=== PATIENT | female | born 1990 | race Caucasian/White ===

== ENCOUNTER 2018-05-10 18:06 | Emergency (ER) | payer MEDICAID ==
[2018-05-10 18:54] VITALS: BP 117/79
[2018-05-10] MEDS ORDERED: Sodium Chloride 0.9% 10 ML Syringe FLUSH PRN (19:04)
[2018-05-10] MEDS ORDERED: Sodium Chloride 0.9% 1,000 ML IV STA (19:04)
--- NOTE | 2018-05-10 19:12 | EDM.PDOC ---
ED HPI GENERAL MEDICAL PROBLEM - General Chief Complaint: Abdominal Pain Stated Complaint: ABDOMINAL PAIN Time Seen by Provider: 05/10/18 18:55 Source of Information: Reports: Patient History Limitations: Reports: No Limitations - History of Present Illness INITIAL COMMENTS - FREE TEXT/NARRATIVE: The patient presents with right lower abdominal pain. This started at 2pm today. The pain has increased through the day. The pain did start in the mid abdomen and traveled to the RLQ. She has nausea but no vomiting. She has chills but no fever. She has no dysuria or diarrhea. Straining to urinate and movement makes the pain worse. She still has her appendix and gallbladder. She has no chest pain or shortness of breath. Onset: Gradual Duration: Hour(s): (2pm today) Location: Reports: Abdomen Quality: Reports: Sharp Severity: Moderate Improves with: Reports: Immobilization Worsens with: Reports: Movement Associated Symptoms: Reports: Nausea/Vomiting. Denies: Chest Pain, Fever/Chills , Headaches, Shortness of Breath Right Lower Abdominal Pain Score (Numeric/FACES): 7 - Related Data Allergies Allergy/AdvReac Type Severity Reaction Status Date / Time wool Allergy Hives Uncoded 05/10/18 18:50 Home Meds: Home Meds . [No Known Home Meds] 05/10/18 [History] Past Medical History STEM ROLLER History: Reports: Endometriosis Social & Family History - Tobacco Use Smoking Status *Q: Never Smoker - Recreational Drug Use Recreational Drug Use: No ED ROS GENERAL - Review of Systems Review Of Systems: See Below Constitutional: Reports: Chills. Denies: Fever HEENT: Reports: No Symptoms Respiratory: Reports: No Symptoms Cardiovascular: Reports: No Symptoms Endocrine: Reports: No Symptoms GI/Abdominal: Reports: Abdominal Pain, Nausea. Denies: Diarrhea, Vomiting : Reports: No Symptoms Musculoskeletal: Reports: No Symptoms ED EXAM, GI/ABD - Physical Exam Exam: See Below Exam Limited By: No Limitations General Appearance: Alert, No Apparent Distress Ears: Normal External Exam Nose: Normal Inspection Head: Atraumatic, Normocephalic Neck: Normal Inspection Respiratory/Chest: No Respiratory Distress, Lungs Clear, Normal Breath Sounds Cardiovascular: Regular Rate, Rhythm, No Edema, No Murmur GI/Abdominal Exam: Soft, No Organomegaly, No Mass, Tender (Moderate tenderness to palpation to the RLQ) Extremities: Normal Inspection Course - Vital Signs Last Recorded V/S: Last Vital Signs Temp 98.5 F 05/10/18 18:50 Pulse 69 05/10/18 18:50 Resp 16 05/10/18 18:50 BP 117/79 05/10/18 18:50 Pulse Ox 97 05/10/18 18:50 - Orders/Labs/Meds Orders: Active Orders 24 hr Category Date Time Status Peripheral IV Care [RC] . DIRECTED Care 05/10/18 19:04 Active Abdomen Pelvis w Cont [CT] Stat Exams 05/10/18 19:04 Taken Transvaginal Non OB [US] Stat Exams 05/10/18 22:06 Taken Sodium Chloride 0.9% [Saline Flush] Med 05/10/18 19:04 Active 10 ml FLUSH ASDIRECTED PRN Peripheral IV Insertion Adult [OM.PC] Stat Oth 05/10/18 19:04 Ordered Medication Orders Sodium Chloride (Saline Flush) 10 ml FLUSH ASDIRECTED PRN PRN Reason: Keep Vein Open Last Admin: 05/10/18 19:20 Dose: 10 ml Labs: Laboratory Tests 05/10/18 05/10/18 05/10/18 Range/Units 19:20 19:20 19:25 WBC 5.34 (3.98-10.04) K/mm3 RBC 4.66 (3.98-5.22) M/mm3 Hgb 14.2 (11.2-15.7) gm/L Hct 42.2 (34.1-44.9) % MCV 90.6 (79.4-94.8) fl MCH 30.5 (25.6-32.2) pg MCHC 33.6 (32.2-35.5) g/dl RDW Std Deviation 39.0 (36.4-46.3) fL Plt Count 205 (182-369) K/mm3 MPV 11.0 (9.4-12.3) fl Neut % (Auto) 58.0 (34.0-71.1) % Lymph % (Auto) 29.4 (19.3-51.7) % Brooks % (Auto) 7.3 (4.7-12.5) % Eos % (Auto) 4.9 (0.7-5.8) Baso % (Auto) 0.4 (0.1-1.2) % Neut # (Auto) 3.10 (1.56-6.13) K/mm3 Lymph # (Auto) 1.57 (1.18-3.74) K/mm3 Brooks # (Auto) 0.39 H (0.24-0.36) K/mm3 Eos # (Auto) 0.26 (0.04-0.36) K/mm3 Baso # (Auto) 0.02 (0.01-0.08) K/mm3 Sodium (136-145) mEq/L Potassium (3.5-5.1) mEq/L Chloride (98-107) mEq/L Carbon Dioxide (21-32) mEq/L Anion Gap (5-15) BUN (7-18) mg/dL Creatinine (0.55-1.02) mg/dL Est Cr Clr Drug Dosing mL/min Estimated GFR (MDRD) (>60) mL/min BUN/Creatinine Ratio (14-18) Glucose (74-106) mg/dL Calcium (8.5-10.1) mg/dL Total Bilirubin (0.2-1.0) mg/dL AST (15-37) U/L ALT (14-59) U/L Alkaline Phosphatase (46-116) U/L Total Protein (6.4-8.2) g/dl Albumin (3.4-5.0) g/dl Globulin gm/dL Albumin/Globulin Ratio (1-2) Lipase (73-393) U/L HCG, Qual Negative (NEGATIVE) Urine Color Light yellow (Yellow) Urine Appearance Clear (Clear) Urine pH 6.5 (5.0-8.0) Ur Specific [place] 1.025 (1.005-1.030) Urine Protein Negative (Negative) Urine Glucose (UA) Negative (Negative) Urine Ketones Negative (Negative) Urine Occult Blood Negative (Negative) Urine Nitrite Negative (Negative) Urine Bilirubin Negative (Negative) Urine Urobilinogen 0.2 (0.2-1.0) Ur Leukocyte Esterase Negative (Negative) Urine RBC Not seen (0-5) /hpf Urine WBC 0-5 (0-5) /hpf Ur Epithelial Cells 10-20 H (0-5) /hpf Urine Bacteria Not seen (FEW) /hpf Urine Mucus Not seen (FEW) /hpf 09/27/18 Range/Units 19:25 WBC (3.98-10.04) K/mm3 RBC (3.98-5.22) M/mm3 Hgb (11.2-15.7) gm/L Hct (34.1-44.9) % MCV (79.4-94.8) fl MCH (25.6-32.2) pg MCHC (32.2-35.5) g/dl RDW Std Deviation (36.4-46.3) fL Plt Count (182-369) K/mm3 MPV (9.4-12.3) fl Neut % (Auto) (34.0-71.1) % Lymph % (Auto) (19.3-51.7) % Brooks % (Auto) (4.7-12.5) % Eos % (Auto) (0.7-5.8) Baso % (Auto) (0.1-1.2) % Neut # (Auto) (1.56-6.13) K/mm3 Lymph # (Auto) (1.18-3.74) K/mm3 Brooks # (Auto) (0.24-0.36) K/mm3 Eos # (Auto) (0.04-0.36) K/mm3 Baso # (Auto) (0.01-0.08) K/mm3 Sodium 139 (136-145) mEq/L Potassium 3.8 (3.5-5.1) mEq/L Chloride 104 (98-107) mEq/L Carbon Dioxide 26 (21-32) mEq/L Anion Gap 12.8 (5-15) BUN 20 H (7-18) mg/dL Creatinine 0.7 (0.55-1.02) mg/dL Est Cr Clr Drug Dosing 95.95 mL/min Estimated GFR (MDRD) > 60 (>60) mL/min BUN/Creatinine Ratio 28.6 H (14-18) Glucose 81 (74-106) mg/dL Calcium 8.8 (8.5-10.1) mg/dL Total Bilirubin 0.3 (0.2-1.0) mg/dL AST 16 (15-37) U/L ALT 22 (14-59) U/L Alkaline Phosphatase 105 (46-116) U/L Total Protein 8.0 (6.4-8.2) g/dl Albumin 4.4 (3.4-5.0) g/dl Globulin 3.6 gm/dL Albumin/Globulin Ratio 1.2 (1-2) Lipase 146 (73-393) U/L HCG, Qual (NEGATIVE) Urine Color (Yellow) Urine Appearance (Clear) Urine pH (5.0-8.0) Ur Specific [place] (1.005-1.030) Urine Protein (Negative) Urine Glucose (UA) (Negative) Urine Ketones (Negative) Urine Occult Blood (Negative) Urine Nitrite (Negative) Urine Bilirubin (Negative) Urine Urobilinogen (0.2-1.0) Ur Leukocyte Esterase (Negative) Urine RBC (0-5) /hpf Urine WBC (0-5) /hpf Ur Epithelial Cells (0-5) /hpf Urine Bacteria (FEW) /hpf Urine Mucus (FEW) /hpf Meds: Medications Generic Name Dose Route Start Last Admin Trade Name Freq PRN Reason Stop Dose Admin Sodium Chloride 10 ml 05/10/18 19:04 05/10/18 19:20 Saline Flush FLUSH 10 ml ASDIRECTED PRN Administration Keep Vein Open Discontinued Medications Generic Name Dose Route Start Last Admin Trade Name Freq PRN Reason Stop Dose Admin Diatrizoate Meglum/Diatrizoate Sod 120 ml 05/10/18 21:07 05/10/18 21:08 Gastrografin 37% PO 05/10/18 21:08 120 ml ONETIME ONE Administration Sodium Chloride 1,000 mls @ 1,000 mls/hr 05/10/18 19:04 05/10/18 19:20 Normal Saline IV 05/10/18 20:03 1,000 mls/hr .BOLUS STA Administration Iopamidol 100 ml 05/10/18 21:07 05/10/18 21:08 Isovue-300 (61%) IVPUSH 05/10/18 21:08 100 ml ONETIME ONE Administration - Re-Assessments/Exams Free Text/Narrative Re-Assessment/Exam: 05/10/18 19:11 I ordered an IV NS 1L bolus, labs, UA and a CT of her abdomen and pelvis. 05/10/18 21:56 Her CBC looks good with a normal WBC. She has a normal CMP. Her HCG is negative. Her UA shows no UTI. Her CT shows nothing acute. Her pain started in her mid abdomen and localized to the right lower abdomen. The pain is not deep in the pelvis. She will not take anything for pain. I will have her follow up with Dr Schwarz or one of her partners. 05/10/18 23:18 I decided to get a transvagianl US to look for an ovarian torsion. I did not suspect that initially because her pain started in her mid abdomen. I do not have the report back yet but she has to go. I will discharge her and call her the results. 05/10/18 23:32 The US was normal. I called to let the patient know. She will follow up with her doctor. Departure - Departure Time of Disposition: 22:00 Disposition: Home, Self-Care 01 Condition: Good Clinical Impression: Abdominal pain Qualifiers: Abdominal location: periumbilical Qualified Code(s): R10.33 - Periumbilical pain - Discharge Information *PRESCRIPTION DRUG MONITORING PROGRAM REVIEWED*: No *COPY OF PRESCRIPTION DRUG MONITORING REPORT IN PATIENT MADDIE: No Instructions: Abdominal Pain, Adult, [id number] Referrals: PCP,None [Primary Care Provider] - Catrina Schwarz MD [Physician] - 1 Week Forms: ED Department Discharge Additional Instructions: Go home and rest. Try a heating pad on your abdomen. Take tylenol or motrin for pain. Please return if you are worse. - My Orders Last 24 Hours: My Active Orders 05/10/18 19:04 Peripheral IV Care [RC] . DIRECTED Abdomen Pelvis w Cont [CT] Stat Sodium Chloride 0.9% [Saline Flush] 10 ml FLUSH ASDIRECTED PRN Peripheral IV Insertion Adult [OM.PC] Stat 05/10/18 22:06 Transvaginal Non OB [US] Stat - Assessment/Plan Last 24 Hours: My Active Orders 05/10/18 19:04 Peripheral IV Care [RC] . DIRECTED Abdomen Pelvis w Cont [CT] Stat Sodium Chloride 0.9% [Saline Flush] 10 ml FLUSH ASDIRECTED PRN Peripheral IV Insertion Adult [OM.PC] Stat 05/10/18 22:06 Transvaginal Non OB [US] Stat
[2018-05-10] MEDS ORDERED: Iopamidol 612 MG/ML 100 ML Bottle IVPUSH ONE (21:07)
[2018-05-10] MEDS ORDERED: Diatrizoate Meglumine/Diatrizoate Sodium 37% 120 ML Bottle PO ONE (21:07)
--- NOTE | 2018-05-11 08:35 | CT ---
CT abdomen and pelvis Technique: Multiple axial sections were obtained above the dome of the diaphragm inferiorly to the pubic symphysis. Intravenous and oral contrast was utilized. Comparison: Prior CT abdomen and pelvis exam of 07/27/15. Findings: Small portion of the visualized lung bases are clear. Liver shows no focal parenchymal abnormality. Spleen appears within normal limits. Two small nonobstructing calculi are seen within the left kidney. Right kidney shows no abnormal calcifications. No hydronephrosis or mass is seen within the kidneys. No adrenal nodule is seen. Pancreas appears within normal limits. Gallbladder contains no calcified gallstones. Aorta shows no aneurysm. No retroperitoneal adenopathy or mesenteric abnormalities are seen. Appendix is seen and is normal. No pelvic mass or adenopathy is seen. No inflammatory change is identified. Bone window settings were reviewed which appear within normal limits for the patient's age. Impression: 1. Two small nonobstructing calculi within the left kidney. 2. Nothing acute is seen on CT study of the abdomen and pelvis. Diagnostic code #2 I agree with preliminary report issued by [employer] ([facility] preliminary report dictated on 05/10/18, 10:41 PM Central Time)
--- NOTE | 2018-05-11 08:35 | US ---
Pelvic ultrasound: Multiple real-time images were obtained transvaginally. Comparison: Prior pelvic ultrasound exam of 03/24/11. Uterus is retroverted. No myometrial abnormality is seen. Endometrial thickness is 1.4 cm. Follicles seen within both ovaries. Paraovarian or exophytic cyst off the right ovary measuring 2.0 cm which is felt to be incidental given its size. No larger cyst or solid abnormality is seen within the ovaries. No free fluid is seen. Measurements: Uterus: Length 7.5 cm, AP height of 4.8 cm, transverse width 6.3 cm Right ovary: 4.2 x 2.5 x 2.7 cm Left ovary: 2.8 x 1.5 x 1.7 cm Impression: 1. Nothing acute is seen on pelvic ultrasound exam. Diagnostic code #1 Agree with preliminary report issued by [facility] ([facility] preliminary report dictated on 05/11/18, 12:26 AM Central Time)
== END 2018-05-10 23:21 | disposition home or self-care (01) ==
LOC: JD.ED 18:06
DX: R10.33 Periumbilical pain (principal)
CPT/HCPCS: 36415; 74177; 76830; 80053; 81001; 83690; 84703; 85025; 96360; 96361; 99284; J7040; J7050; Q9963; Q9967

== ENCOUNTER 2020-04-13 13:33 | Emergency (ER) | payer MEDICAID, OTHER ==
--- NOTE | 2020-04-13 15:51 | EDM.PDOC ---
ED HPI GENERAL MEDICAL PROBLEM - General Chief Complaint: Chest Pain Stated Complaint: SKIN COMPLAINT (COVID +) Time Seen by Provider: 04/13/20 13:55 Source of Information: Reports: Patient History Limitations: Reports: No Limitations - History of Present Illness INITIAL COMMENTS - FREE TEXT/NARRATIVE: The patient is COVID 19 positive and she presents with chest pain and a rash on her face. She started having some symptoms 8 days ago. She got tested last week and found out she was positive on Monday. She has been isolated. She has body aches but those are better except pain in her right lower anterior leg. She has no swelling there. She has mid chest pain that has been there since this started and maybe a little worse. She developed a rash an hour ago on her face. She thinks there is some swelling in her throat. She was recently put on flagyl for bacterial vaginosis She has no rash anywhere else. She has no medical problems. She has some shortness of breath with exertion at times. Her cough is mostly gone. She does not have a sense of smell or taste. Onset: Gradual Duration: Day(s): Location: Reports: Chest, Lower Extremity, Right Quality: Reports: Sharp Severity: Moderate Improves with: Reports: None Worsens with: Reports: None Associated Symptoms: Reports: Chest Pain Chest Pain Score (Numeric/FACES): 7 - Related Data Allergies Allergy/AdvReac Type Severity Reaction Status Date / Time wool Allergy Hives Verified 04/13/20 14:27 Home Meds: Home Meds Clindamycin HCl 300 mg PO BID #14 capsule 04/13/20 [Rx] traMADol [Ultram] 50 - 100 mg PO Q6H PRN #20 tab 04/13/20 [Rx] Past Medical History HEENT History: Reports: Impaired Vision Other HEENT History: wears eyeglasses. Respiratory History: Reports: SOB, Other (See Below) Other Respiratory History: COVID +) currently. Genitourinary History: Reports: UTI, Recurrent Other Genitourinary History: bacterial vaginosis. DIRECT[employer] LEARNING [employer] DEVELOPMENT History: Reports: Endometriosis, Endocrine/Metabolic History: Reports: Hyperthyroidism - Infectious Disease History Infectious Disease History: Reports: Chicken Pox, Influenza, Novel Coronavirus Social & Family History - Tobacco Use Smoking Status *Q: Never Smoker Second Hand Smoke Exposure: No - Caffeine Use Caffeine Use: Reports: Soda - Recreational Drug Use Recreational Drug Use: No ED ROS GENERAL - Review of Systems Review Of Systems: See Below Constitutional: Reports: No Symptoms HEENT: Reports: No Symptoms Respiratory: Reports: Shortness of Breath Cardiovascular: Reports: Chest Pain Endocrine: Reports: No Symptoms GI/Abdominal: Reports: No Symptoms : Reports: No Symptoms Musculoskeletal: Reports: No Symptoms Skin: Reports: Rash (on face) ED EXAM, GENERAL - Physical Exam Exam: See Below Exam Limited By: No Limitations General Appearance: Alert, No Apparent Distress Ears: Normal External Exam Nose: Normal Inspection Throat/Mouth: Normal Inspection Head: Atraumatic, Normocephalic Neck: Normal Inspection Respiratory/Chest: No Respiratory Distress, Lungs Clear, Normal Breath Sounds Cardiovascular: Regular Rate, Rhythm, No Edema, No Murmur GI/Abdominal: Soft, Non-Tender, No Organomegaly, No Mass Back Exam: Normal Inspection Extremities: Other (Mild pain upon palpation to the right lower anterior leg without edema) Neurological: Alert, Oriented, No Motor/Sensory Deficits Skin Exam: Rash (papular rash to the chin) Course - Vital Signs Last Recorded V/S: Last Vital Signs Temp 97.1 F 04/13/20 13:55 Pulse 64 04/13/20 13:55 Resp 16 04/13/20 13:55 BP 89/57 L 04/13/20 13:55 Pulse Ox 100 04/13/20 13:55 - Orders/Labs/Meds Orders: Active Orders 24 hr Category Date Time Status EKG 12 Lead [EKG Documentation Completion] [RC] STAT Care 04/13/20 14:22 Active Labs: Laboratory Tests 04/13/20 04/13/20 04/13/20 Range/Units 15:35 15:35 15:35 WBC 3.53 L (3.98-10.04) K/mm3 RBC 4.11 (3.98-5.22) M/mm3 Hgb 12.9 (11.2-15.7) gm/dl Hct 38.4 (34.1-44.9) % MCV 93.4 (79.4-94.8) fl MCH 31.4 (25.6-32.2) pg MCHC 33.6 (32.2-35.5) g/dl RDW Std Deviation 39.8 (36.4-46.3) fL Plt Count 167 L (182-369) K/mm3 MPV 10.7 (9.4-12.3) fl Neut % (Auto) 67.9 (34.0-71.1) % Lymph % (Auto) 24.1 (19.3-51.7) % [place] % (Auto) 5.4 (4.7-12.5) % Eos % (Auto) 2.3 (0.7-5.8) Baso % (Auto) 0.3 (0.1-1.2) % Neut # (Auto) 2.40 (1.56-6.13) K/mm3 Lymph # (Auto) 0.85 L (1.18-3.74) K/mm3 [place] # (Auto) 0.19 L (0.24-0.36) K/mm3 Eos # (Auto) 0.08 (0.04-0.36) K/mm3 Baso # (Auto) 0.01 (0.01-0.08) K/mm3 D-Dimer, Quantitative < 0.19 L (0.19-0.50) mg/L Sodium 141 (136-145) mEq/L Potassium 3.9 (3.5-5.1) mEq/L Chloride 107 (98-107) mEq/L Carbon Dioxide 30 (21-32) mEq/L Anion Gap 7.9 (5-15) BUN 10 (7-18) mg/dL Creatinine 0.7 (0.55-1.02) mg/dL Est Cr Clr Drug Dosing 91.72 mL/min Estimated GFR (MDRD) > 60 (>60) mL/min BUN/Creatinine Ratio 14.3 (14-18) Glucose 83 (74-106) mg/dL Calcium 8.9 (8.5-10.1) mg/dL Ferritin (8-252) ng/ml Total Bilirubin 0.3 (0.2-1.0) mg/dL AST 14 L (15-37) U/L ALT 21 (14-59) U/L Alkaline Phosphatase 62 (46-116) U/L Lactate Dehydrogenase 135 (81-234) U/L C-Reactive Protein 0.2 (<1.0) mg/dL Total Protein 7.0 (6.4-8.2) g/dl Albumin 3.7 (3.4-5.0) g/dl Globulin 3.3 gm/dL Albumin/Globulin Ratio 1.1 (1-2) 04/13/20 Range/Units 15:35 WBC (3.98-10.04) K/mm3 RBC (3.98-5.22) M/mm3 Hgb (11.2-15.7) gm/dl Hct (34.1-44.9) % MCV (79.4-94.8) fl MCH (25.6-32.2) pg MCHC (32.2-35.5) g/dl RDW Std Deviation (36.4-46.3) fL Plt Count (182-369) K/mm3 MPV (9.4-12.3) fl Neut % (Auto) (34.0-71.1) % Lymph % (Auto) (19.3-51.7) % [place] % (Auto) (4.7-12.5) % Eos % (Auto) (0.7-5.8) Baso % (Auto) (0.1-1.2) % Neut # (Auto) (1.56-6.13) K/mm3 Lymph # (Auto) (1.18-3.74) K/mm3 [place] # (Auto) (0.24-0.36) K/mm3 Eos # (Auto) (0.04-0.36) K/mm3 Baso # (Auto) (0.01-0.08) K/mm3 D-Dimer, Quantitative (0.19-0.50) mg/L Sodium (136-145) mEq/L Potassium (3.5-5.1) mEq/L Chloride (98-107) mEq/L Carbon Dioxide (21-32) mEq/L Anion Gap (5-15) BUN (7-18) mg/dL Creatinine (0.55-1.02) mg/dL Est Cr Clr Drug Dosing mL/min Estimated GFR (MDRD) (>60) mL/min BUN/Creatinine Ratio (14-18) Glucose (74-106) mg/dL Calcium (8.5-10.1) mg/dL Ferritin 44 (8-252) ng/ml Total Bilirubin (0.2-1.0) mg/dL AST (15-37) U/L ALT (14-59) U/L Alkaline Phosphatase (46-116) U/L Lactate Dehydrogenase (81-234) U/L C-Reactive Protein (<1.0) mg/dL Total Protein (6.4-8.2) g/dl Albumin (3.4-5.0) g/dl Globulin gm/dL Albumin/Globulin Ratio (1-2) - Re-Assessments/Exams Free Text/Narrative Re-Assessment/Exam: 04/13/20 15:54 I ordered an EKG, CXR and labs. Her EKG shows a NSR with no acute changes. 04/13/20 16:57 Her CXR looks good. Her WBC was a little low at 3.53. Her D-dimer was negative. Her CMP looks good. I will get her on some clindamycine for the BV and something for pain. Departure - Departure Time of Disposition: 17:00 Disposition: Home, Self-Care 01 Condition: Good Clinical Impression: COVID-19, Atypical chest pain, Bacterial vaginosis, Right leg pain Allergic reaction Qualifiers: Encounter type: initial encounter Qualified Code(s): T78.40XA - Allergy, unspecified, initial encounter Prescriptions: Clindamycin HCl 300 mg PO BID #14 capsule traMADol [Ultram] 50 - 100 mg PO Q6H PRN #20 tab PRN Reason: Pain Referrals: Corina Corey NP [Primary Care Provider] - 1 Week Forms: ED Department Discharge Additional Instructions: Take the clindamycine 2 times per day for 7 days. Do not use flagyl. You are allergic. Take benadryl as needed for any itching or swelling. Take the ultram every 6 hours as needed for pain. Please return if you are worse. Sepsis Event Note (ED) - Evaluation Sepsis Screening Result: No Definite Risk - Focused Exam Vital Signs: Vital Signs Temp Pulse Resp BP Pulse Ox 04/13/20 13:55 97.1 F 64 16 89/57 L 100 - My Orders Last 24 Hours: My Active Orders 04/13/20 14:22 EKG 12 Lead [EKG Documentation Completion] [RC] STAT - Assessment/Plan Last 24 Hours: My Active Orders 04/13/20 14:22 EKG 12 Lead [EKG Documentation Completion] [RC] STAT
--- NOTE | 2020-04-13 16:21 | CR ---
Chest: Portable view of the chest was obtained. Comparison: No prior chest imaging is available. Findings: Heart size and mediastinum are normal. Lungs are clear with no acute parenchymal change. Bony structures are grossly intact. Impression: 1. Nothing acute is seen on portable chest x-ray. Diagnostic code #1 Study was dictated in [facility]
[2020-04-13 18:12] VITALS: BP 112/86; PULSE 78
== END 2020-04-13 17:25 | disposition home or self-care (01) ==
LOC: JD.ED 13:33
DX: U07.1 COVID-19 (principal); N76.0 Acute vaginitis; T78.40XA Allergy, unspecified, initial encounter; M79.661 Pain in right lower leg; Z91.048 Other nonmedicinal substance allergy status
CPT/HCPCS: 36415; 71045; 71045-26; 80053; 82728; 83615; 84484; 85025; 85379; 86140; 93005; 93010; 99284

== ENCOUNTER 2020-12-28 01:50 | Emergency (ER) | payer MEDICAID ==
[2020-12-28] MEDS ORDERED: fentaNYL 100 MCG/2 ML SDV ONE (02:03)
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
[2020-12-28] MEDS ORDERED: fentaNYL 100 MCG/2 ML SDV IVPUSH ONE (02:05)
[2020-12-28] MEDS ORDERED: Diphtheria,Pertussis(Acell),Tetanus Vaccine 0.5 ML Syringe IM ONE (02:08)
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
[2020-12-28] MEDS ORDERED: HYDROmorphone 0.5 MG/0.5 ML Syringe IVPUSH ONE (03:02)
[2020-12-28 03:22] VITALS: BP 118/66; PULSE 112
[2020-12-28] MEDS ORDERED: Acetaminophen/HYDROcodone 325-5 MG Tab PO ONE (05:34)
--- NOTE | 2020-12-28 12:10 | CR ---
Chest: Portable view of the chest was obtained. Comparison: Prior chest x-ray from 04/13/20. Heart size and mediastinum are within normal limits. Lungs are clear with no acute parenchymal change. Bony structures appear within normal limits for the patient's age. Impression: 1. Nothing acute is seen on portable chest x-ray. Diagnostic code #1 MTDD
--- NOTE | 2020-12-28 12:10 | CR ---
Left elbow: 2 views of the left elbow were obtained. Comparison: No prior elbow study is available. Joint spaces are preserved. No joint effusion is appreciated. No acute fracture, dislocation or other bony abnormality is appreciated. Impression: 1. Nothing acute is seen on 2 view left elbow study. Diagnostic code #1 I agree with preliminary report from [facility], finalized on 12/28/20, 4:07 AM CDT, code 1 MTDD
--- NOTE | 2020-12-28 12:11 | CR ---
Pelvis: AP view of the pelvis was obtained. Comparison: No prior pelvis x-ray is available. Joint spaces within both hips are maintained. Sacroiliac joints appear within normal limits. No acute fracture or other bony abnormality is appreciated. Impression: 1. Nothing acute is seen on AP pelvis study. Diagnostic code #1 I agree with preliminary report from [facility], finalized on 12/28/20, 4:08 AM CDT, code 1 MTDD
== END 2020-12-28 05:09 | disposition home or self-care (01) ==
LOC: JD.ED 01:50
DX: S41.132A Puncture wound without foreign body of left upper arm, initial encounter (principal); S50.02XA Contusion of left elbow, initial encounter; S70.312A Abrasion, left thigh, initial encounter; S70.311A Abrasion, right thigh, initial encounter; Z88.1 Allergy status to other antibiotic agents; Z91.048 Other nonmedicinal substance allergy status; Z23 Encounter for immunization; X95.9XXA Assault by unspecified firearm discharge, initial encounter
CPT/HCPCS: 36415; 71045; 72170; 73070; 80053; 82150; 83605; 85025; 85610; 85730; 90471; 90715; 96374; 96375; 99285; A9270; J1170; J3010; 99283

== ENCOUNTER 2025-02-22 23:31 | Emergency (ER) | payer MEDICAID, OTHER ==
[2025-02-22 23:41] VITALS: BP 115/76; PULSE 78
[2025-02-23] MEDS: Ketorolac 30 MG/ML SDV IM ONE (00:37)
== END 2025-02-23 01:49 | disposition left against medical advice (07) ==
LOC: JD.ED 23:31
DX: M62.838 Other muscle spasm (principal); Z88.8 Allergy status to other drugs, medicaments and biological substances; Z91.09 Other allergy status, other than to drugs and biological substances; Z79.899 Other long term (current) drug therapy; Z86.16 Personal history of COVID-19
CPT/HCPCS: 96372; 99283; A9270; J1885